=== PATIENT | female | born 1975 | race African-American/Black ===

== ENCOUNTER 2021-02-10 15:57 | Emergency (ER) | payer OTHER, SELFPAY ==
--- NOTE | ~2021-02-10 | XR_ITS ---
EXAMINATION: XR abdomen/kub 1V EXAM DATE: 02/10/2021 16:45 INDICATION: Constipation. TECHNIQUE: Frontal projection(s) of the abdomen for interpretation. There is no prior study for keith olsen. FINDINGS: There is moderate amount of colonic stool and gas. No small bowel dilation, nonobstructiv e bowel gas pattern. There are no suspicious calcifications identified. There is no organomegaly suspected. The bones are unremarkable. IMPRESSION: Moderate amount of colonic stool. Reviewed, dictated and finalized at location A.
[2021-02-10 16:12] VITALS: BP 127/73; PULSE 84; RESP 18; TEMP 36.4; O2SAT 100
--- NOTE | 2021-02-10 16:25 | ED.FEMALEGU ---
HPI - Female Genitourinary General Chief complaint: Urogenital-Female Stated complaint: UTI Time Seen by Provider: 02/10/21 16:26 Source: patient and RN notes reviewed Mode of arrival: ambulatory Limitations: no limitations History of Present Illness HPI Narrative: 45-year-old female presents to the [facility] with complaints of unable to have a bowel movement and thinks she is constipated for the last several days. Also complains of an abnormal vaginal discharge. Denies any chances of an STD. Patient states that she has had intermittent cramping to the left lower quadrant. Related Data Home Medications Medication Instructions Recorded Confirmed ferrous sulfate 324 mg PO DAILY 02/10/21 02/10/21 Allergies Allergy/AdvReac Type Severity Reaction Status Date / Time No Known Allergies Allergy Verified 02/10/21 17:13 Review of Systems Review of Systems: All systems reviewed & are unremarkable except as noted in HPI and below Constitutional: Constitutional: Reports no additional constitutional complaints, Denies chills and Denies fatigue Eyes: Eyes: Reports no additional eye complaints Cardiovascular: Cardiovascular: Reports no additional cardiovascular complaints and Denies chest pain Respiratory: Respiratory: Reports no additional respiratory complaints, Denies cough and Denies dyspnea Gastrointestinal: Gastrointestinal: Reports as per HPI, Reports abdominal pain (Left lower quadrant cramping), Reports bloating, Reports constipation, Denies diarrhea, Denies nausea and Denies vomiting Genitourinary: Genitourinary: Reports as per HPI and Reports vaginal discharge Musculoskeletal: Musculoskeletal: Reports no additional musculoskeletal complaints Integumentary/Breasts: Skin/Breast: Reports system reviewed and no additional complaints, except as docu Neurologic: Reports system reviewed and no additional complaints, except as documented Psychiatric: Psychiatric: Reports no additional psychiatric complaints Allergic/Immunologic: Allergic/Immunologic: Reports no additional allergic/immunologic complaints PMFSH Comments At the time of my signature, I reviewed and agree with the nursing past medical, surgical, social, and family history. There is no relevant family history pertinent to the patient complaint. Exam Const: General: healthy appearing, no acute distress and alert Nutritional Appearance: well nourished Orientation/consciousness: patient oriented x3 Limitations: no limitations HENMT: Head: normal to inspection Neck: Neck: normal visual inspection, no lymphadenopathy and no meningeal signs Chest: Chest palpation & inspection: normal inspection of the chest Resp: Effort & Inspection: normal respiratory effort and no use of accessory muscles Auscultation: clear to auscultation bilaterally, no crackles, no rales, no rhonchi and no wheezes Cardio: Rate: regular rate Rhythm: regular rhythm GI: GI Palp: Yes Soft to palpation and No Tenderness to palpation present (GI) : General: Yes no CVA tenderness Speculum Exam - Vagina: normal appearance of the vagina, normal vaginal discharge, no foreign bodies and No vaginal bleeding Speculum Exam - Cervix: Cervical os closed Bimanual Exam- Adnexa, other: No adnexal tenderness and no masses noted OB/external & speculum: no herpetic lesions Back/Spine/Pelvis: Back: no CVA tenderness Skin: General skin exam: normal color Rashes: no rashes Neuro: General: patient oriented x3, moves all extremities, no meningeal signs and no focal motor deficits Speech: normal speech Gait exam (Neuro): Normal gait present Extrem: General: normal to inspection and no pedal edema Psych: Mental Status: mental status grossly normal Affect: normal affect Attitude: cooperative Thought content: Yes Normal thought content present Judgement: Good judgement present (Psych) Course Course Emergency Course: Discharge instructions reviewed with patient, as well as provided in wri
== END 2021-02-10 17:28 | disposition home or self-care (01) ==
PROVIDERS: Emergency Provider Nurse Practitioner; PCP Family Medicine
DX: N76.0 Acute vaginitis (principal); K59.00 Constipation, unspecified
CPT/HCPCS: 74018; 81003; 87070; 99203; G0463

== ENCOUNTER 2022-06-20 12:29 | Emergency (ER) | payer OTHER, SELFPAY ==
[2022-06-20 12:40] VITALS: BP 137/79; PULSE 99; RESP 16; TEMP 37.6; O2SAT 100
--- NOTE | 2022-06-20 12:55 | ED.GENADULT ---
HPI - General Adult General Chief complaint: Abdominal Pain Stated complaint: Abdominal Pain,Chest Pain Time Seen by Provider: 06/20/22 12:56 Source: patient, RN notes reviewed and old records reviewed Mode of arrival: ambulatory Limitations: no limitations History of Present Illness HPI narrative: 46-year-old female presents to the [facility] with complaints of right upper quadrant, left upper quadrant, left lower quadrant pain since last night. Has not been able to eat or drink anything as she keeps vomiting. Pain radiates into her back and into her chest occasionally. Patient originally denied any past medical or surgical history. Related Data Home Medications Medication Instructions Recorded Confirmed ferrous sulfate 324 mg (65 mg 324 mg PO DAILY 02/10/21 02/10/21 iron) tablet,delayed release Allergies Allergy/AdvReac Type Severity Reaction Status Date / Time No Known Allergies Allergy Verified 06/20/22 12:32 Review of Systems Review of Systems: All systems reviewed & are unremarkable except as noted in HPI and below Constitutional: Constitutional: Reports no additional constitutional complaints, Denies chills and Denies fever(s) Eyes: Eyes: Reports no additional eye complaints ENT: Reports system reviewed and no additional complaints, except as documented Cardiovascular: Cardiovascular: Reports no additional cardiovascular complaints Respiratory: Respiratory: Reports no additional respiratory complaints Gastrointestinal: Gastrointestinal: Reports as per HPI, Reports abdominal pain, Reports nausea and Reports vomiting Musculoskeletal: Musculoskeletal: Reports no additional musculoskeletal complaints Integumentary/Breasts: Skin/Breast: Reports system reviewed and no additional complaints, except as docu Neurologic: Reports system reviewed and no additional complaints, except as documented Psychiatric: Psychiatric: Reports no additional psychiatric complaints Allergic/Immunologic: Allergic/Immunologic: Reports no additional allergic/immunologic complaints PMFSH Comments At the time of my signature, I reviewed and agree with the nursing past medical, surgical, social, and family history. There is no relevant family history pertinent to the patient complaint. Exam Const: General: healthy appearing, comfortable, no acute distress, well developed, alert and well nourished Nutritional Appearance: well nourished Orientation/consciousness: patient oriented x3 Limitations: no limitations HENMT: Head: normal to inspection Ears: external ears normal Eyes: General: appearance normal, both eyes and all related structures Pupils: Equal, round and reactive pupils present Neck: Neck: normal visual inspection, full ROM, no lymphadenopathy and no meningeal signs Chest: Chest palpation & inspection: normal inspection of the chest Resp: Effort & Inspection: normal respiratory effort and no use of accessory muscles Auscultation: clear to auscultation bilaterally, no crackles, no rales, no rhonchi and no wheezes Cardio: Rate: regular rate Rhythm: regular rhythm GI: GI Palp: Yes Soft to palpation and Yes Tenderness to palpation present (GI) (Right upper quadrant, left upper quadrant, left lower quadrant) Auscultation: Hyperactive bowel sounds present Back/Spine/Pelvis: Cervical Spine: cervical ROM normal and No Cervical spine tenderness Thoracic/Lumbar Spine: thoracic and lumbar spine normal to inspection and thoraco-lumbar ROM normal Skin: General skin exam: normal color Rashes: no rashes Wounds: no wounds Neuro: General: patient oriented x3, moves all extremities, no meningeal signs and no focal motor deficits Cranial nerves: Yes Equal, round and reactive pupils present Speech: normal speech Gait exam (Neuro): Normal gait present Extrem: General: normal to inspection, full ROM and capillary refill normal Psych: Appearance: grossly normal and well kempt Mental Status: mental status grossly normal A
== END 2022-06-20 13:07 | disposition short-term general hospital (02) ==
PROVIDERS: Emergency Provider Nurse Practitioner
DX: R10.11 Right upper quadrant pain (principal); R10.12 Left upper quadrant pain; R10.32 Left lower quadrant pain
CPT/HCPCS: 99212; G0463

== ENCOUNTER 2023-02-19 16:14 | Emergency (ER) | payer OTHER, SELFPAY ==
[2023-02-19 16:20] VITALS: BP 145/77; PULSE 74; RESP 16; TEMP 37.2; O2SAT 100
--- NOTE | 2023-02-19 17:15 | ED.FEMALEGU ---
HPI - Female Genitourinary General Chief complaint: Urogenital-Female Stated complaint: urinary problem Time Seen by Provider: 02/19/23 17:10 Source: patient and RN notes reviewed Mode of arrival: ambulatory Limitations: no limitations History of Present Illness HPI Narrative: Patient presents today complaining of urinary frequency times 3-4 days with difficulty initiating urine stream and hematuria since last night. She took a cranberry pill yesterday, which did help with some symptoms. No recent antibiotic use. She is not currently menstruating. Related Data Allergies Allergy/AdvReac Type Severity Reaction Status Date / Time No Known Allergies Allergy Verified 02/19/23 17:18 Review of Systems Review of Systems: CONSTITUTIONAL: Denies body aches, fever, chills, or sweats. EYES: Denies visual changes, redness, or discharge. ENT: Denies rhinorrhea, congestion, sore throat, or otalgia. CARDIOVASCULAR: Denies chest pain, palpitations, or edema. RESPIRATORY: Denies cough or dyspnea. GASTROINTESTINAL: Denies abdominal pain, nausea, vomiting, or diarrhea. GENITOURINARY: + frequency, hematuria. SKIN: Denies rash, itching, or wounds. MUSCULOSKELETAL: Denies back pain, joint pain, or myalgia. NEUROLOGIC: Denies headache, numbness, tingling, or weakness. PSYCH: Denies depression or anxiety. PMFSH Comments At time of signature, I have reviewed and agree with nursing past medical, surgical, social and family history unless otherwise noted. Please see nursing chart for further information. There is no relevant family history pertinent to the presenting complaint Exam Narrative: GENERAL: Well-appearing, well-nourished, and in no acute distress. HEAD: Normocephalic, atraumatic. EYES: EOMI. No redness or drainage. Conjunctivae normal. ENT: Mucous membranes pink and moist. NECK: Normal AROM. CHEST: No respiratory distress. Clear to auscultation. HEART: Regular rate and rhythm. No murmur appreciated. Normal peripheral pulses. ABDOMEN: Soft, nondistended, normal active bowel sounds.+ mild suprapubic tenderness EXTREMITIES: Normal range of motion. No edema. SKIN: Warm, dry, no rash. Capillary refill normal. Normal skin turgor. NEURO: No focal deficits. Alert and oriented x3. Gait steady. PSYCH: Normal affect. No signs of depression or anxiety. Course Course Level of Care: Express Care Visit Vital Signs Vital signs: Vital Signs Temperature 98.9 F 02/19/23 16:20 Pulse Rate 74 02/19/23 16:20 Respiratory Rate 16 02/19/23 16:20 Blood Pressure 145/77 H 02/19/23 16:20 Pulse Oximetry 100 02/19/23 16:20 Oxygen Delivery Room Air 02/19/23 16:20 Temperature 98.9 F 02/19/23 16:20 Pulse Rate 74 02/19/23 16:20 Respiratory Rate 16 02/19/23 16:20 Blood Pressure 145/77 H 02/19/23 16:20 Pulse Oximetry 100 02/19/23 16:20 Oxygen Delivery Room Air 02/19/23 16:20 Reviewed. Pt has been instructed to follow up with her PCP regarding her elevated blood pressure today. MDM - Female Genitourinary MDM Narrative Medical decision making narrative: Urinalysis is negative, but given patient's symptoms, I feel it indicated to treat her with antibiotics today. Prescription for Keflex sent to pharmacy. Anticipatory guidance given. Differential Diagnosis Differential diagnosis: Likely urinary tract infection, vaginitis and cystitis Lab Data Attestation: I reviewed the patient's lab results. Labs: Urine Glucose Negative Reference Range: Negative Urine Bilirubin Negative Reference Range: Negative Urine Ketone Negative Reference Range: Negative Urine Specific Kimball 1.015 Reference Range:1.001-1.035 Urine Blood
== END 2023-02-19 17:25 | disposition home or self-care (01) ==
PROVIDERS: Emergency Provider Nurse Practitioner; PCP Emergency Medicine
DX: N30.00 Acute cystitis without hematuria (principal)
CPT/HCPCS: 81003; 87086; 99213; G0463

== ENCOUNTER 2023-03-22 16:45 | Emergency (ER) | payer OTHER, SELFPAY ==
[2023-03-22 16:56] VITALS: BP 129/74; PULSE 116; RESP 20; TEMP 38.7; O2SAT 100
--- NOTE | 2023-03-22 17:07 | ED.URI ---
HPI - URI/Sore Throat General Chief Complaint: Upper Respiratory Infection Stated Complaint: chills,weak Time Seen by Provider: 03/22/23 16:48 Source: patient Mode of arrival: ambulatory Limitations: no limitations History of Present Illness HPI Narrative: Patient is a 47-year-old female that presents with fever, chills, cough, body aches and fatigue since yesterday. Question just come back from cruise on Sunday from [place]. Denies any sick contacts. Related Data Home Medications Medication Instructions Recorded Confirmed ferrous sulfate 324 mg (65 mg mg PO 03/22/23 iron) tablet,delayed release Allergies Allergy/AdvReac Type Severity Reaction Status Date / Time No Known Allergies Allergy Verified 03/22/23 16:57 Review of Systems Review of Systems: All systems reviewed & are unremarkable except as noted in HPI and below Constitutional: Constitutional: Denies body ache(s), Reports chills, Reports fatigue, Reports fever(s), Denies headache(s), Denies malaise and Denies weakness Eyes: Eyes: Denies blurry vision, Denies itchy eyes and Denies loss of vision ENT: Denies otalgia, Denies headache(s), Denies nasal congestion, Denies sinus pain and Denies sore throat Cardiovascular: Cardiovascular: Denies chest pain, Denies irregular heart rhythm and Denies dyspnea Respiratory: Respiratory: Reports cough and Denies dyspnea Gastrointestinal: Gastrointestinal: Denies abdominal pain, Denies diarrhea, Denies nausea and Denies vomiting Musculoskeletal: Musculoskeletal: Denies back pain, Denies myalgias and Denies arthralgias Integumentary/Breasts: Skin/Breast: Denies pruritus and Denies rash Neurologic: Denies headache(s), Denies loss of vision and Denies weakness Psychiatric: Psychiatric: Reports no additional psychiatric complaints Endocrine: Endocrine: Denies fatigue Allergic/Immunologic: Allergic/Immunologic: Denies itchy eyes PMFSH Comments At time of signature, agree with nursing past medical, surgical, social and family history. There is no relevant family history pertinent to the presenting complaint. Exam Const: General: cooperative, healthy appearing, comfortable, no acute distress and well nourished Nutritional Appearance: well nourished Orientation/consciousness: patient oriented x3 Limitations: no limitations HENMT: Head: normal to inspection, normocephalic and atraumatic Ears: hearing grossly normal bilaterally, external ears normal, TM's normal bilaterally, EAC's normal and no periauricular adenopathy Face/Nose/Sinus: Normal external nose present, Normal nasal mucous membranes and turbinates present, normal facial exam, sinuses nontender and face symmetric Face and sinus: normal facial exam, sinuses nontender and face symmetric Mouth: Yes Normal oral and palatal mucosa present, Yes lip normal, Yes tongue normal, Yes Normal salivary glands and ducts present, Yes oropharynx normal and Yes moist mucous membranes Teeth and gingiva: dentition normal Throat: posterior oropharynx normal, tonsils normal and uvula midline Eyes: General: appearance normal, both eyes and all related structures Alignment and Position: alignment normal and position normal Periorbital: periorbital findings normal Eyelids: eyelids normal Pupils: Equal, round and reactive pupils present Neck: Neck: normal visual inspection, full ROM, no lymphadenopathy and supple Chest: Chest palpation & inspection: normal inspection of the chest and normal palpation of entire chest wall Resp: Effort & Inspection: normal respiratory effort and able to speak in complete sentences Auscultation: clear to auscultation bilaterally, no crackles, no rales, no rhonchi and no wheezes Cardio: Rate: regular rate Rhythm: regular rhythm Heart sounds: S1 normal heart sound present and S2 normal heart sound present GI: Inspection: normal to inspection Skin: General skin exam: normal color and no rashes or lesions noted Neuro: General: patient gerard
[2023-03-22 18:19] VITALS: PULSE 108; TEMP 38
== END 2023-03-22 18:10 | disposition home or self-care (01) ==
PROVIDERS: Emergency Provider Nurse Practitioner Family; PCP Family Medicine
DX: J06.9 Acute upper respiratory infection, unspecified (principal); Z20.822 Contact with and (suspected) exposure to COVID-19
CPT/HCPCS: 87426; 99213; C9803; G0463

== ENCOUNTER 2024-04-29 09:16 | Emergency (ER) | payer OTHER, SELFPAY ==
--- NOTE | ~2024-04-29 | XR_ITS ---
XR foot LT min 3V Ordering provider: Monroe Fischer MD History: . HEEL PAIN WITHOUT INJURY, NUMBNESS IN FOOT . Comparison: None. FINDINGS: BONES: No definite acute fracture or dislocation. Small bony fragment near to the navicular bone most likely old fracture or sesamoid bones. Acute frac tures cannot be excluded. Clinical evaluation for tenderness advised. JOINT SPACES: Normal. No tarsal coalition. SOFT TISSUES: Normal. Ossification of the insertion of the tendo Achilles. IMPRESSION: No definite acute osseous abnormality left foot. Bony fragment seen near to the navicular bone. Clinical evaluation for tenderness in the area advised . Reviewed, dictated and finalized at location A. IMPRESSION: No definite acute osseous abnormality left foot. Bony fragment seen near to the navicular bone. Clinical evaluation for tenderne ss in the area advised.
[2024-04-29 09:19] VITALS: BP 140/77; PULSE 78; RESP 18; TEMP 36.6; O2SAT 100
--- NOTE | 2024-04-29 11:21 | ED.EXTPRO ---
HPI - Extremity Problem General Chief complaint: Extremity Problem,Nontraumatic Stated complaint: left foot pain Time Seen by Provider: 04/29/24 10:54 History of Present Illness HPI Narrative: 48-year-old female presents emergency department for evaluation for left foot pain. Patient states she was walking at work when she felt a pain in the bottom of her left foot yesterday. Patient states that the pain in her foot has worsened. Patient does have some swelling around the ankle. Related Data Home Medications Medication Instructions Recorded Confirmed ferrous sulfate 324 mg (65 mg mg PO 03/22/23 iron) tablet,delayed release Allergies Allergy/AdvReac Type Severity Reaction Status Date / Time No Known Allergies Allergy Verified 04/29/24 09:17 Review of Systems Review of Systems: All systems reviewed & are unremarkable except as noted in HPI and below Exam Narrative: APPEARANCE: Well appearing, no pain, no distress, well-nourished. HEAD: normocephalic, atraumatic. EYES: PERRLA/EOMI, conjunctivae clear. NOSE: Normal no drainage EARS:TMS clear with good light reflex. THROAT: Pharynx clear, no exudate. NECK: Supple. No adenopathy, no masses. RESPIRATORY: Airway patent, respirations nonlabored. Clear to auscultation bilaterally, no rales, rhonchi, wheezing. CARDIOVASCULAR: Regular rate and rhythm without murmurs rubs or gallops. ABDOMINAL: Soft, nontender, nondistended, normal bowel sounds MUSCULOSKELETAL: Left ankle swelling and foot tenderness. NEURO: Alert. Cranial nerves II through XII intact. G SKIN: Warm, dry. Normal Color Course Course Emergency Course: Patient was placed in a short-leg splint with crutches Vital Signs Vital signs: Vital Signs Temperature 97.8 F 04/29/24 09:19 Pulse Rate 78 04/29/24 09:19 Respiratory Rate 18 04/29/24 09:19 Blood Pressure 140/77 04/29/24 09:19 Pulse Oximetry 100 04/29/24 09:19 Oxygen Delivery Room Air 04/29/24 09:19 Temperature 98.0 F 04/29/24 12:12 Pulse Rate 99 04/29/24 12:12 Respiratory Rate 18 04/29/24 12:12 Blood Pressure 138/83 04/29/24 12:12 Pulse Oximetry 100 04/29/24 12:12 Oxygen Delivery Room Air 04/29/24 09:19 MDM - Extremity (Nontraumatic) MDM Narrative Medical decision making narrative: 48-year-old female presents emergency department for evaluation for left foot pain. X-ray was concerning for a navicular fracture. This is consistent with her exam. Patient was placed in a short-leg splint provided crutches for nonweightbearing encouraged close follow-up with Orthopedics. Patient was comfortable plan with discharge and close follow-up. Differential Diagnosis Differential diagnosis: Likely other (Foot fracture, foot sprain, ankle fracture, ankle sprain) Discharge Plan Discharge Clinical Impression: Closed navicular fracture of left foot Patient Disposition: Home, Self-Care Condition: Stable Instructions: Antibiotic Form, Crutch Instructions (ED), Foot Fracture in Adults (ED), Splint Care (ED) Additional Instructions: X-ray was concerning for a fracture of your navicular bone of your foot. Splint care as directed. Crutches for limited weight-bearing. Have close follow-up with Orthopedics. Tylenol and ibuprofen for pain control. If you have any worsening symptoms then please call or return to the emergency department. Prescriptions: No Action ferrous sulfate 324 mg (65 mg iron) tablet,delayed release (DR/EC) PO Follow-up/Referrals: Garrick Le MD [Primary Care Provider] - Jerod Gomez MD [Physician] - Stand Alone Forms: Work/School Release IP
[2024-04-29 12:12] VITALS: BP 138/83; PULSE 99; RESP 18; TEMP 36.7; O2SAT 100
== END 2024-04-29 12:13 | disposition home or self-care (01) ==
PROVIDERS: Emergency Provider Emergency Medicine; PCP Family Medicine
DX: S92.252A Displaced fracture of navicular [scaphoid] of left foot, initial encounter for closed fracture (principal); X58.XXXA Exposure to other specified factors, initial encounter
CPT/HCPCS: 29515; 73630; 99284